=== PATIENT | male | born 1950 | race Caucasian/White ===

== ENCOUNTER 2016-07-11 10:52 | Day surgery (SDC) | payer BC ==
[2016-07-11] MEDS ORDERED: LACTATED RINGERS 1,000 ML IV ONE ×2 (11:29→13:53)
[2016-07-11] MEDS ORDERED: MIDAZOLAM 2 MG/2 ML VIAL IVP ONE (13:23)
[2016-07-11] MEDS ORDERED: fentaNYL 100 MCG/2 ML VIAL IVP ONE (13:23)
[2016-07-11] MEDS ORDERED: DEXTROSE 50% ABBOJECT 25 GM/50 ML SYRINGE ONE (14:18)
== END 2016-07-11 10:53 | disposition home or self-care (01) ==
PROC: 0DJD8ZZ Inspection of Lower Intestinal Tract, Via Natural or Artificial Opening Endoscopic (ICD-10-PCS; principal; 2016-07-11 12:00)
DX: Z12.11 Encounter for screening for malignant neoplasm of colon (principal); Z80.0 Family history of malignant neoplasm of digestive organs; Z86.010 Personal history of colon polyps; K57.30 Diverticulosis of large intestine without perforation or abscess without bleeding; K64.8 Other hemorrhoids; E78.5 Hyperlipidemia, unspecified; E11.9 Type 2 diabetes mellitus without complications; Z79.84 Long term (current) use of oral hypoglycemic drugs; G47.30 Sleep apnea, unspecified; Z94.7 Corneal transplant status; Z82.49 Family history of ischemic heart disease and other diseases of the circulatory system
CPT/HCPCS: 45378; J7120

== ENCOUNTER 2016-08-25 13:13 | Outpatient (CLI) | payer BC | END 2016-08-25 13:14 | disposition home or self-care (01) | DX: G47.33 Obstructive sleep apnea (adult) (pediatric) (principal) ==

== ENCOUNTER 2016-09-05 11:30 | Outpatient (CLI) | payer BC | END 2016-09-05 23:59 | disposition home or self-care (01) | DX: I73.00 Raynaud's syndrome without gangrene (principal) ==

== ENCOUNTER 2016-10-20 11:04 | Outpatient (CLI) | payer BC ==
[2016-10-20 19:25] LABS: HEMOGLOBIN A1C 0.63 g/dL
== END 2016-10-20 11:05 | disposition home or self-care (01) ==
LOC: LAB.WCP 11:04
PROVIDERS: ATTEND Family Medicine
DX: E11.9 Type 2 diabetes mellitus without complications (principal)
CPT/HCPCS: 36415; 83036

== ENCOUNTER 2017-04-17 09:38 | Outpatient (CLI) | payer BC ==
[2017-04-17 13:23] LABS: BASOPHILS % (AUTO) 0.6 %; EOSINOPHILS # (AUTO) 0.1 10^3/uL (0.0-0.7); EOSINOPHILS % (AUTO) 2.9 %; HCT - HEMATOCRIT 38.7 % (42.0-52.0); HGB - HEMOGLOBIN 13.2 g/dL (14.0-18.0); LYMPHOCYTES # (AUTO) 1.4 10^3/uL (1.5-3.5); LYMPHOCYTES % (AUTO) 28.8 %; MEAN CORPUSCULAR HEMOGLOBIN 30.2 pg (27.0-31.0); MEAN CORPUSCULAR VOLUME 88.8 fL (80.0-94.0); MEAN PLATELET VOLUME 9.2 fL (7.4-11.4); MONOCYTES # (AUTO) 0.4 10^3/uL (0.0-1.0); MONOCYTES % (AUTO) 8.4 %; NEUTROPHILS # (AUTO) 2.8 10^3/uL (1.5-6.6); NEUTROPHILS % (AUTO) 59.3 %; NUCLEATED RED BLOOD CELLS AUTO 0.1 /100WBC; RED BLOOD COUNT 4.36 10^6/uL (4.70-6.10); RED CELL DISTRIBUTION WIDTH 12.9 % (12.0-15.0); UNCORRECTED WHITE BLOOD COUNT 4.7 x10^3/uL; WHITE BLOOD COUNT 4.7 x10^3/uL (4.8-10.8)
[2017-04-17 14:02] LABS: ALBUMIN/GLOBULIN RATIO 1.6 (1.0-2.2); BILIRUBIN,TOTAL 0.5 mg/dL (0.2-1.0); BUN - BLOOD UREA NITROGEN 15 mg/dL (6-20); CALCIUM 9.1 mg/dL (8.5-10.3); CARBON DIOXIDE - CO2 30 mmol/L (21-32); CHLORIDE 104 mmol/L (101-111); CHOL/HDL RATIO 3.1 (<5.0); CHOLESTEROL 122 mg/dL; CREATININE 0.9 mg/dL (0.6-1.2); GFR - MDRD 85 (>89); GLUCOSE 111 mg/dL (70-100); HDL CHOLESTEROL 39 mg/dL; LDL/HDL RATIO 1.6 (<3.6); POTASSIUM 4.1 mmol/L (3.5-5.0); SODIUM 137 mmol/L (135-145); TOTAL PROTEIN 6.8 g/dL (6.7-8.2); TRIGLYCERIDES 103 mg/dL; VLDL CHOLESTEROL 21 mg/dL
[2017-04-17 14:06] LABS: HEMOGLOBIN A1C 0.63 g/dL
== END 2017-04-17 09:39 | disposition home or self-care (01) ==
LOC: LAB.WCP 09:38
PROVIDERS: ATTEND Family Medicine
DX: I73.00 Raynaud's syndrome without gangrene (principal); E11.9 Type 2 diabetes mellitus without complications
CPT/HCPCS: 36415; 80053; 80061; 82043; 83036; 85025

== ENCOUNTER 2017-05-04 10:25 | Outpatient (CLI) | payer BC | END 2017-05-04 10:26 | disposition home or self-care (01) | LOC: LAB.WCP 10:25 | PROVIDERS: ATTEND Family Medicine | DX: Z12.5 Encounter for screening for malignant neoplasm of prostate (principal) | CPT/HCPCS: 36415; 84153 ==

== ENCOUNTER 2017-11-02 08:00 | Outpatient (CLI) | payer BC ==
[2017-11-02 12:51] LABS: ALBUMIN/GLOBULIN RATIO 1.4 (1.0-2.2); BILIRUBIN,TOTAL 0.6 mg/dL (0.2-1.0); CALCIUM 9.3 mg/dL (8.5-10.3); TOTAL PROTEIN 6.9 g/dL (6.7-8.2)
[2017-11-02 13:11] LABS: HB2 TOTAL 14.9 g/dL; HEMOGLOBIN A1C 0.64 g/dL; HEMOGLOBIN A1C % 6.1 % (4.6-6.2)
== END 2017-11-02 08:01 | disposition home or self-care (01) ==
LOC: LAB.WCP 08:00
PROVIDERS: ATTEND Family Medicine
DX: R03.0 Elevated blood-pressure reading, without diagnosis of hypertension (principal); E11.9 Type 2 diabetes mellitus without complications; D12.6 Benign neoplasm of colon, unspecified; E78.5 Hyperlipidemia, unspecified
CPT/HCPCS: 36415; 80053; 83036

== ENCOUNTER 2017-11-24 09:44 | Observation (INO) | payer MEDICARE, BC ==
--- NOTE | 2017-11-24 10:12 | ED Physician Documentation ---
PD HPI GI BLEED - Stated complaint Stated Complaint: RECTAL BLEED - Chief complaint Chief Complaint: Cardiac - History obtained from History obtained from: Patient, Family - History of Present Illness Timing - onset: How many days ago (3) Timing - duration: Days (3) Timing - details: Gradual onset, Still present Associated symptoms: BRBPR, Maroon stool Contributing factors: Recent antibiotics (course one month ago twice per day antibiotic for a toe infection). No: Sick contact, Bad food Improved by: Laying still Worsened by: Eating Similar symptoms before: Has not had sx before Recently seen: Clinic - Additional information Additional information: 67 year old male was in his usual state of health and about 3 days ago he developed bright red blood per rectum. He had a fair amount out on the initial output and this reduced through the day but he had repeated bleeding and required some time to clean himself up. He states the following day he had similar amount of blood out and he went into see his primary care doctor he was seen by Reji Pineda who was able to draw his blood yesterday and examined him. He did not have blood at that time. The patient does state that he has had blood out again this morning and that when he went to go do his exercise he found that he was lightheaded and dizzy. He called the primary care and asked him to come to the emergency department as his blood counts were low. Review of Systems Constitutional: denies: Fever Ears: denies: Ear pain Nose: denies: Congestion Throat: denies: Sore throat Cardiac: denies: Chest pain / pressure, Palpitations Respiratory: denies: Dyspnea, Cough GI: reports: Abdominal Pain, Bloody / black stool. denies: Nausea, Vomiting : denies: Dysuria, Frequency Skin: denies: Rash Musculoskeletal: denies: Neck pain, Back pain, Extremity pain Neurologic: reports: Generalized weakness, Near syncope. denies: Focal weakness , Numbness PD PAST MEDICAL HISTORY - Past Medical History Cardiovascular: Hypertension, High cholesterol Respiratory: Sleep apnea, CPAP use Endocrine/Autoimmune: Type 2 diabetes GI: None : None Psych: None Musculoskeletal: None Derm: None - Past Surgical History General: Colonoscopy - Present Medications Home Medications: Ambulatory Orders Medication Instructions Recorded Confirmed Simvastatin 40 mg PO QPM 08/24/15 11/24/17 Tamsulosin [Flomax] 0.4 mg PO 1730 08/24/15 11/24/17 metFORMIN [Glucophage] 500 mg PO BIDWM 08/24/15 11/24/17 Aspirin [Aspirin EC] 81 mg PO DAILY 11/24/17 11/24/17 Cholecalciferol (Vitamin D3) 2,000 units PO DAILY 11/24/17 11/24/17 [Vitamin D3] Losartan Potassium 25 mg PO DAILY 11/24/17 11/24/17 Ubidecarenone [Co Q-10] 10 mg PO DAILY 11/24/17 11/24/17 Vitamin B Complex 1 tab PO DAILY 11/24/17 11/24/17 - Allergies Allergies/Adverse Reactions: Allergies Allergy/AdvReac Type Severity Reaction Status Date / Time No Known Drug Allergies Allergy Verified 11/24/17 10:00 - Social History Smoking Status: Never smoker PD ED PE NORMAL - Vitals Vital signs reviewed: Yes (hypertensive) - General General: Alert and oriented X 3, No acute distress, Well developed/nourished - HEENT HEENT: Atraumatic, PERRL, EOMI - Neck Neck: Supple, no meningeal sign, No bony TTP - Cardiac Cardiac: RRR, No murmur - Respiratory Respiratory: No respiratory distress, Clear bilaterally - Abdomen Abdomen: Soft, Non tender - Rectal Rectal: Other (There is a lot of maroon stool over the buttocks and there are hemorrhoids that do not appears inflamed. ) - Back Back: No CVA TTP, No spinal TTP - Derm Derm: Normal color, Warm and dry, No rash - Extremities Extremities: No deformity, No edema - Neuro Neuro: Alert and oriented X 3, melter operator 2-12 intact, No motor deficit, No sensory deficit, Normal speech Eye Opening: Spontaneous Motor: Obeys Commands Verbal: Oriented GCS Score: 15 - Psych Psych: Normal mood, Normal affect Results - Vitals Vitals: Vital Signs - 24 hr 11/24/17 11/24/17 09:59 11:24 Temperature 36.5 C Heart Rate 78 80 Respiratory 16 14 Rate Blood Pressure 141/68 H 134/70 H O2 Saturation 100 99 Oxygen O2 Source Room air - EKG (time done) 1007 Rate: Rate (enter#) (73) Ischemia: Normal ST segments Other comments: Other comments (early transition) Compare to prior EKG: Old EKG unavailable Computer interpretation: Agree with computer - Labs Labs: Laboratory Tests 11/24/17 11/24/17 11/24/17 10:10 10:10 10:10 WBC 8.2 RBC 3.66 L Hgb 11.1 L Hct 33.2 L MCV 90.7 MCH 30.4 MCHC 33.5 RDW 13.1 Plt Count 217 MPV 8.8 APTT 25.0 Sodium Potassium Chloride Carbon Dioxide Anion Gap BUN Creatinine Estimated GFR (MDRD) Glucose Calcium Total Bilirubin AST ALT Alkaline Phosphatase Total Protein Albumin Globulin Albumin/Globulin Ratio Lipase Blood Type O POSITIVE Antibody Screen NEGATIVE 11/24/17 10:10 WBC RBC Hgb Hct MCV MCH MCHC RDW Plt Count MPV APTT Sodium 137 Potassium 3.9 Chloride 102 Carbon Dioxide 28 Anion Gap 7.0 BUN 23 H Creatinine 0.9 Estimated GFR (MDRD) 85 L Glucose 155 H Calcium 8.8 Total Bilirubin 0.8 AST 20 ALT 17 Alkaline Phosphatase 54 Total Protein 6.6 L Albumin 4.4 Globulin 2.2 Albumin/Globulin Ratio 2.0 Lipase 27 Blood Type Antibody Screen Procedures - IVC sono (time) 1050 Bedside IVC sono: IVC measures (cm) (1.46), Euvolemia PD MEDICAL DECISION MAKING - ED course Complexity details: reviewed old records, reviewed results, re-evaluated patient , considered differential, d/w patient, d/w family ED course: 67-year-old male with GI bleeding who is symptomatic and continues to bleed for the third day. - Sepsis Event Vital Signs: Vital Signs - 24 hr 11/24/17 11/24/17 09:59 11:24 Temperature 36.5 C Heart Rate 78 80 Respiratory 16 14 Rate Blood Pressure 141/68 H 134/70 H O2 Saturation 100 99 Oxygen O2 Source Room air Departure - Departure Disposition: ED Place in Observation Clinical Impression: GI bleeding Qualifiers: GI bleed type/associated pathology: melena Qualified Code(s): K92.1 - Melena Condition: Stable
[2017-11-24 10:34] LABS: HGB - HEMOGLOBIN 11.1 g/dL (14.0-18.0); MEAN CORPUSCULAR HEMOGLOBIN 30.4 pg (27.0-31.0); MEAN CORPUSCULAR HGB CONC 33.5 g/dL (32.0-36.0); MEAN CORPUSCULAR VOLUME 90.7 fL (80.0-94.0); MEAN PLATELET VOLUME 8.8 fL (7.4-11.4); RED BLOOD COUNT 3.66 10^6/uL (4.70-6.10); RED CELL DISTRIBUTION WIDTH 13.1 % (12.0-15.0); WHITE BLOOD COUNT 8.2 x10^3/uL (4.8-10.8)
[2017-11-24 10:55] LABS: ALBUMIN 4.4 g/dL (3.2-5.5); BILIRUBIN,TOTAL 0.8 mg/dL (0.2-1.0); CALCIUM 8.8 mg/dL (8.5-10.3); CREATININE 0.9 mg/dL (0.6-1.2); TOTAL PROTEIN 6.6 g/dL (6.7-8.2)
[2017-11-24] MEDS ORDERED: PANTOPRAZOLE 40 MG VIAL IVP STA (11:00)
[2017-11-24] MEDS ORDERED: SODIUM CHLORIDE FLUSH 0.9% 10 ML SYRINGE IVP PRN (13:19)
--- NOTE | 2017-11-24 15:35 | HISTORY & PHYSICAL EXAMINATION ---
Chief Complaint - Chief Complaint Chief Complaint: fall History of Present Illness - Admitted From Admitted From:: ED - History Obtained From Records Reviewed: yes History obtained from: chart review, patient Exam Limitations: none - History of Present Illness HPI Comment/Other: Jabari Koch is a 67-year old male with a past medical history of diabetes type 2, SAAD-wears home CPAP, nocturia, BPH, tinnitis, chronic cough, hypertension, hyperlipidemia, Raynaud's phenomenon, and adenomatous colonic polyp April 2016 found on a colonoscopy with Dr. Santo. He has been bleeding from his rectum for the past 3 days. He denies previous episodes. He saw his PCP and was not found to have any bleeding, but hemorrhoids were appreciated. This morning he had viola red blood per rectum at home that was increased in volume, and had dizziness, weakness and fatigue, mild low abdominal cramping, so presented to the ED. Once in the ED he is found to have a low H & H of 11.1 and 33.2, with no other significant abnormalities. He denies increased shortness of breath, nausea, vomiting, recent illness, bleeding from any where else, or an increased cough. There was no imaging. Once the patient arrived on the nursing floor, he continued to have have viola blood in a moderate amount. A call to Dr. Palacio, general surgery was made for a consult, who recommends bowel prep to be started this evening, and serial H/Hs. He will be admitted to observation for a planned colonoscopy in the AM with Dr. Palacio. History - Past Medical History Cardiovascular: reports: Hypertension, High cholesterol, Other (Raynaud's syndrome) Respiratory: reports: Sleep apnea, CPAP use Neuro: reports: None Endocrine/Autoimmune: reports: Type 2 diabetes GI: reports: GERD, Hemorrhoids, Diverticulitis PERSONNEL WORKER: reports: None : reports: Benign prostate hypertrophy, Nocturia HEENT: reports: Chronic sinusitis, Chronic hearing loss, Other Psych: reports: None Musculoskeletal: reports: None Derm: reports: Other (recent toe infection.) MRSA Hx?: No - Past Surgical History General: reports: Colonoscopy HEENT: reports: Other - Family & Social History Family History: Mother: , Cancer, Father: , CAD, Brother: Alive and Well, Parkinson's Disease Family History Comment/Other: Father with heart disease, mother with cancer- both . 2 Brother who are alive and well, one brother with newly diagnosed Parkinson's. Living arrangement: At home Living Situation: With spouse/s.o. Social History Notes: The patient is retired from the [employer]. He has been to his , Lizette for the past 25 years, has no children and 2 cats named Frank and Joanne. He lives independently and belongs to a work out club. He denies chronic alcohol use, and admits to very occasional social use. He denies illicit drug use, or tobacco use. He wishes to be a FULL code. - Substance History Use: Uses substance without health or social issues: NONE Abuse: Recurrent use of substance despite neg consequences: NONE Dependence: Experiences withdrawal or developed tolerances: NONE - POLST Patient has POLST: No POLST Status: Full Code Meds/Allgy - Home Medications Home Medications: Ambulatory Orders Medication Instructions Recorded Confirmed Simvastatin 40 mg PO QPM 08/24/15 11/24/17 Tamsulosin [Flomax] 0.4 mg PO 1730 08/24/15 11/24/17 metFORMIN [Glucophage] 500 mg PO BIDWM 08/24/15 11/24/17 Aspirin [Aspirin EC] 81 mg PO DAILY 11/24/17 11/24/17 Cholecalciferol (Vitamin D3) 2,000 units PO DAILY 11/24/17 11/24/17 [Vitamin D3] Losartan Potassium 25 mg PO DAILY 11/24/17 11/24/17 Ubidecarenone [Co Q-10] 10 mg PO DAILY 11/24/17 11/24/17 Vitamin B Complex 1 tab PO DAILY 11/24/17 11/24/17 - Allergies Allergies/Adverse Reactions: Allergies Allergy/AdvReac Type Severity Reaction Status Date / Time No Known Drug Allergies Allergy Verified 11/24/17 10:00 Exam - Vital Signs Reviewed Vital Signs: Yes Vital Signs: Vital Signs x48h Temp Pulse Resp BP Pulse Ox 11/24/17 15:00 36.8 C 92 19 123/67 97 11/24/17 13:42 36.8 C 82 16 138/74 H 100 - Physical Exam General Appearance: positive: No acute distress, Alert Eyes Bilateral: positive: Normal inspection, PERRL ENT: positive: ENT inspection nml, Pharynx nml, No signs of dehydration Neck: positive: Nml inspection, Thyroid nml, No JVD Respiratory: positive: Chest non-tender, No respiratory distress, Breath sounds nml Cardiovascular: positive: Regular rate & rhythm, No gallop Peripheral Pulses: positive: 2+ Abdomen: positive: Guarding, Abnml bowel sounds, Other (rounded, soft) Back: positive: Nml inspection Skin: positive: No rash, Warm, Dry Extremities: positive: Non-tender, Full ROM, Pedal edema (varicose veins BLE, dependent edema-chronic) Neurologic/Psychiatric: positive: Oriented x3, CN's nml (2-12), Motor nml, Sensation nml, Depressed mood/affect, Other (studdery speech) Reflexes: Bicep (R): 3+, Bicep (L): 3+ Conclusion/Plan - Problem List (1) Diabetes mellitus type 2 in nonobese Conclusion/Plan: The patient is considered to be in good control with a HgA1C of just 6.2%. He is prescribed Metformin 500 mg PO BID at home and admits to attempts at daily exercise. Plan: Give low dose Lantus SQ while here and hold Metformin. (2) GI bleeding Conclusion/Plan: The patient admits to a 3 day history of this, saw his PCP in the clinic who could not note any bleeding and today had gross melena at home prior to admission. He became dizzy, weak and felt as if he may pass out. Once arriving on the nursing floor he continued to have bleeding. A consult for general surgery was made. Dr. Palacio recommends bowel prep with a planned colonoscopy in the AM. Plan: Monitor for bleeding, symptoms, and serial H/Hs. Plan for colonoscopy in the AM, Dr. Palacio as the provider. Qualifiers: GI bleed type/associated pathology: melena Qualified Code(s): K92.1 - Melena (3) Bleeding hemorrhoids Conclusion/Plan: The patient saw GI general surgery as an out patient for his rectal bleeding. In a chart review, Luis Armando Pineda MD saw the patient and noted, "Patient noticed blood on the toilet paper and in the bowl. He goes on to explain that last week he was having a flareup of his hemorrhoids and after using Preparation H they seemed to decrease in size. At first he thought he was having a recurrence when he saw the blood 2 days ago. However, when he applied the Preparation H this time he did not feel any treating hemorrhoids". Plan: Proceed with colonoscopy and follow Dr. Palacio's recommendations. (4) SAAD on CPAP Conclusion/Plan: The patient was diagnosed with severe SAAD in 2012 in [place], [place]. He recieves his CPAP unit from [facility] and uses a Wisp nasal mask. As per records review from his last sleep medicine appointment in August of 2017; He is thought to be 97.8% compliant with his device and should return for a check up in one year. Plan: to bring in home unit, and monitor for respiratory distress. (5) Anemia Conclusion/Plan: The patient is noted to have a reduced H/H at 11.1/33.2 and this is likely a consequence of his acute blood loss that started about 3 days prior to admission. Plan: Continue to monitor for extensive GI blood loss and do serial H/H as per surgery recommendations. Qualifiers: Other causes of anemia: acute posthemorrhagic - Lab Results Lab results reviewed: Yes Lul Bones: 11/25/17 06:54 11/24/17 10:10 - Diagnostic Imaging Results Diagnostic Imaging Results: positive: Prelim report reviewed, Final report reviewed - EKG Results EKG Interpreted Independently: Yes Core Measures - Anticipated LOS I expect patient to be DC'd or transferred within 96 hours.: Yes - DVT/VTE - Prophylaxis VTE/DVT Device ordered at admit?: Yes VTE/DVT Prophylaxis med ordered at admit?: No Not Ordered - Medical Reason: Contraindicated - Stroke - Rehab Assessment Rehab services assessment to be ordered?: No Not Ordered - Medical Reason: Contraindicated - AMI - Statin at Admit Aspirin Prescribed on Admit: No Not Ordered - Medical Reason: Contraindicated
[2017-11-24] MEDS: SODIUM/POTASSIUM/MAG SULFATES 354 ML PREP KIT PO SCH (17:53)
[2017-11-24] MEDS: SODIUM CHLORIDE FLUSH 0.9% 10 ML SYRINGE IVP SCH ×2 (18:00→23:35)
[2017-11-24 19:28] LABS: HGB - HEMOGLOBIN 11.2 g/dL (14.0-18.0)
[2017-11-24] MEDS: PANTOPRAZOLE 40 MG VIAL IVP SCH (20:21)
[2017-11-24] MEDS: SODIUM CHLORIDE 0.9% 1,000 ML IV SCH (20:24)
[2017-11-25 02:17] LABS: HGB - HEMOGLOBIN 9.4 g/dL (14.0-18.0)
[2017-11-25] MEDS: SODIUM/POTASSIUM/MAG SULFATES 354 ML PREP KIT PO SCH (05:30)
[2017-11-25 07:31] LABS: BASOPHILS # (AUTO) 0.1 10^3/uL (0.0-0.1); BASOPHILS % (AUTO) 0.9 %; EOSINOPHILS # (AUTO) 0.2 10^3/uL (0.0-0.7); EOSINOPHILS % (AUTO) 3.3 %; HGB - HEMOGLOBIN 10.4 g/dL (14.0-18.0); LYMPHOCYTES # (AUTO) 1.7 10^3/uL (1.5-3.5); LYMPHOCYTES % (AUTO) 26.8 %; MEAN CORPUSCULAR HEMOGLOBIN 30.3 pg (27.0-31.0); MEAN CORPUSCULAR HGB CONC 33.8 g/dL (32.0-36.0); MEAN CORPUSCULAR VOLUME 89.6 fL (80.0-94.0); MEAN PLATELET VOLUME 8.6 fL (7.4-11.4); MONOCYTES # (AUTO) 0.5 10^3/uL (0.0-1.0); MONOCYTES % (AUTO) 8.4 %; NEUTROPHILS # (AUTO) 3.8 10^3/uL (1.5-6.6); NEUTROPHILS % (AUTO) 60.6 %; PLT - PLATELET COUNT 215 10^3/uL (130-450); RED BLOOD COUNT 3.44 10^6/uL (4.70-6.10); RED CELL DISTRIBUTION WIDTH 13.4 % (12.0-15.0); WHITE BLOOD COUNT 6.3 x10^3/uL (4.8-10.8)
[2017-11-25 08:20] LABS: HB2 TOTAL 10.9 g/dL; HEMOGLOBIN A1C 0.48 g/dL; HEMOGLOBIN A1C % 6.2 % (4.6-6.2)
[2017-11-25] MEDS: SODIUM CHLORIDE 0.9% 1,000 ML IV SCH (08:32)
--- NOTE | 2017-11-25 08:55 | CONSULTATION NOTE ---
Referring Provider Name of Referring Provider:: Kary Mack Consult Date: 11/25/17 Chief Complaint - Chief Complaint Chief Complaint: GI Bleed History of Present Illness - History of Present Illness HPI Comment/Other: This is a 67-year-old gentleman who presented to the emergency department with a 3 day history of maroon colored stools.He states that he was in his usual state of health and suddenly began developing these maroon colored stools. He did have one episode of lower abdominal pain which subsided before coming to the emergency department. He had a similar episode approximately 1 year ago and underwent a colonoscopy at that time which was negative for any acute findings. He regularly undergoes clinic scopic evaluations every 5 years due to family history and usually has polyps which are removed. He has never had an upper endoscopy. He denies any associated upper GI symptoms such as burning epigastric pain, GERD, or any history of peptic ulcer disease.Since his admission to the hospital he has remained hemodynamically stable.He has continued to have maroon stools with his bowel prep. He has continued to have maroon colored stools that he has completed his bowel prep.His H&H on admission was and today is 03/06.He takes a baby aspirin daily and no other anticoagulation.He denies any recent heavy usage of NSAIDs. History - Past Medical History Cardiovascular: reports: Hypertension, High cholesterol Respiratory: reports: Sleep apnea, CPAP use Neuro: reports: None Endocrine/Autoimmune: reports: Type 2 diabetes GI: reports: GERD, Hemorrhoids, Diverticulitis COURT SPECIALIST: reports: None : reports: Benign prostate hypertrophy, Nocturia HEENT: reports: Chronic sinusitis, Chronic hearing loss, Other Psych: reports: None Musculoskeletal: reports: None Derm: reports: Other (recent toe infection.) MRSA Hx?: No - Past Surgical History General: reports: Colonoscopy HEENT: reports: Other - Family & Social History Family History: Mother: , Cancer, Father: , CAD, Brother: Alive and Well, Parkinson's Disease Family History Comment/Other: Father with heart disease, mother with cancer- both . 2 Brother who are alive and well, one brother with newly diagnosed Parkinson's. Living arrangement: At home Living Situation: With spouse/s.o. Social History Notes: The patient is retired from the [employer]. He has been to his , Lizette for the past 25 years, has no children and 2 cats named Frank and Joanne. He lives independently and belongs to a work out club. He denies chronic alcohol use, and admits to very occasional social use. He denies illicit drug use, or tobacco use. He wishes to be a FULL code. - Substance History Use: Uses substance without health or social issues: NONE Abuse: Recurrent use of substance despite neg consequences: NONE Dependence: Experiences withdrawal or developed tolerances: NONE - POLST Patient has POLST: No POLST Status: Full Code Meds/Allgy - Home Medications Home Medications: Ambulatory Orders Medication Instructions Recorded Confirmed Simvastatin 40 mg PO QPM 08/24/15 11/24/17 Tamsulosin [Flomax] 0.4 mg PO 1730 08/24/15 11/24/17 metFORMIN [Glucophage] 500 mg PO BIDWM 08/24/15 11/24/17 Aspirin [Aspirin EC] 81 mg PO DAILY 11/24/17 11/24/17 Cholecalciferol (Vitamin D3) 2,000 units PO DAILY 11/24/17 11/24/17 [Vitamin D3] Losartan Potassium 25 mg PO DAILY 11/24/17 11/24/17 Ubidecarenone [Co Q-10] 10 mg PO DAILY 11/24/17 11/24/17 Vitamin B Complex 1 tab PO DAILY 11/24/17 11/24/17 - Allergies Allergies/Adverse Reactions: Allergies Allergy/AdvReac Type Severity Reaction Status Date / Time No Known Drug Allergies Allergy Verified 11/24/17 10:00 Review of Systems - Constitutional Constitutional: reports: Fatigue - Cardiovascular Cariovascular: denies: Chest pain - Respiratory Respiratory: denies: Cough - Gastrointestinal Gastrointestinal: reports: Rectal bleeding. denies: Abdominal pain, Abdominal distention Exam - Vital Signs Vital Signs: Vital Signs x48h Temp Pulse Resp BP Pulse Ox 11/25/17 07:42 36.3 C L 77 16 148/84 H 99 11/25/17 05:33 36.6 C 80 16 135/75 H 97 - Physical Exam General Appearance: positive: No acute distress Respiratory: positive: No respiratory distress, Breath sounds nml Cardiovascular: positive: Regular rate & rhythm Abdomen: positive: Non-tender, No distention Extremities: positive: Nml appearance Neurologic/Psychiatric: positive: Oriented x3 Conclusion/Plan - Diagnosis Diagnosis: 67-year-old gentleman with GI bleed - Plan Plan: The patient will undergo both EGD and colonoscopy today. The procedures were explained to the patient in detail including potential risks involved including but not limited to bleeding and perforation. He understands and agrees to proceed. - Lab Results Lab results reviewed: Yes Lul Bones: 11/25/17 06:54 11/24/17 10:10
[2017-11-25] MEDS: PANTOPRAZOLE 40 MG VIAL IVP SCH (09:00)
[2017-11-25] MEDS ORDERED: POLYETHYLENE GLYCOL 3350 17 GM PACKET PO SCH (09:00)
[2017-11-25] MEDS ORDERED: LIDO GARGLE 30 ML BOTTLE PO ONE (09:00)
[2017-11-25] MEDS ORDERED: LIDO GARGLE 30 ML BOTTLE ONE (09:11)
[2017-11-25] MEDS: SODIUM CHLORIDE FLUSH 0.9% 10 ML SYRINGE IVP SCH (09:24)
[2017-11-25] MEDS ORDERED: MIDAZOLAM 2 MG/2 ML VIAL IVP ONE (10:00)
[2017-11-25] MEDS ORDERED: fentaNYL 100 MCG/2 ML VIAL IVP ONE (10:00)
[2017-11-25] MEDS ORDERED: PROPOFOL 200 MG/20 ML VIAL IVP ONE (10:00)
--- NOTE | 2017-11-25 10:57 | DISCHARGE SUMMARY ---
Discharge Summary Admit Date: 11/24/17 Discharge Date: 11/25/17 Discharging Provider: AMINA Rendon Primary Care Provider: Darren Salazar MD Code Status: Attempt Resuscitation Condition at Discharge: Good Discharge Disposition: 01 Home, Self Care - DIAGNOSES Admission Diagnoses: Gastrointestinal hemorrhage, unspecified (K92.2) Type 2 diabetes mellitus without complications (E11.9) Unspecified hemorrhoids (K64.9) Obstructive sleep apnea (adult) (G47.33) Discharge Diagnoses with Status of Each Condition: Gastric ulcer (K25.9) GI bleed (K92.2) Diabetes mellitus type 2, controlled (E11.9) Bleeding hemorrhoid (K64.9) SAAD on CPAP (G47.33) - HPI History of Present Illness: Jabari Koch is a 67-year old male with a past medical history of diabetes type 2, SAAD-wears home CPAP, nocturia, BPH, tinnitis, chronic cough, hypertension, hyperlipidemia, Raynaud's phenomenon, and adenomatous colonic polyp April 2016 found on a colonoscopy with Dr. Santo. He has been bleeding from his rectum for the past 3 days. He denies previous episodes. He saw his PCP and was not found to have any bleeding, but hemorrhoids were appreciated. This morning he had viola red blood per rectum at home that was increased in volume, and had dizziness, weakness and fatigue, mild low abdominal cramping, so presented to the ED. Once in the ED he is found to have a low H & H of 11.1 and 33.2, with no other significant abnormalities. He denies increased shortness of breath, nausea, vomiting, recent illness, bleeding from any where else, or an increased cough. There was no imaging. Once the patient arrived on the nursing floor, he continued to have have viola blood in a moderate amount. A call to Dr. Palacio, general surgery was made for a consult, who recommends bowel prep to be started this evening, and serial H/Hs. He will be admitted to observation for a planned colonoscopy in the AM with Dr. Palacio. - CONSULTS | PROCEDURES Consultations: GI surgery, Dr. Palacio - HOSPITAL COURSE Hospital Course: (1) Diabetes mellitus type 2 in nonobese The patient is considered to be in good control with a HgA1C of just 6.2%. He is prescribed Metformin 500 mg PO BID at home and admits to attempts at daily exercise. The patient was given low dose Lantus SQ while here and his Metformin was held and resumed upon discharge. (2) GI bleeding The patient admits to a 3 day history of this, saw his PCP in the clinic who could not note any bleeding and today had gross melena at home prior to admission. He became dizzy, weak and felt as if he may pass out. Once arriving on the nursing floor he continued to have bleeding. A consult for general surgery was made. Dr. Palacio recommends bowel prep with a planned colonoscopy in the AM. The patient was monitored for bleeding, and had serial H /Hs, which were stable. The patient underwent a colonoscopy/EGD with Dr. Palacio, who identified the most likely source of bleeding of an ulcer. He was given a PPI and carafate upon discharge. (3) Bleeding hemorrhoids The patient saw GI general surgery as an out patient for his rectal bleeding. In a chart review, Luis Armando Pineda MD saw the patient and noted, "Patient noticed blood on the toilet paper and in the bowl. He goes on to explain that last week he was having a flareup of his hemorrhoids and after using Preparation H they seemed to decrease in size. At first he thought he was having a recurrence when he saw the blood 2 days ago. However, when he applied the Preparation H this time he did not feel any treating hemorrhoids". This is considered stable upon discharge. (4) SAAD on CPAP The patient was diagnosed with severe SAAD in 2012 in [place], [place]. He recieves his CPAP unit from [facility] and uses a Wisp nasal mask. As per records review from his last sleep medicine appointment in August of 2017; He is thought to be 97.8% compliant with his device and should return for a check up in one year. brought in the patient's home unit and he was noted to be as compliant as possible, despite undergoing his bowel prep through the night. He was monitored for respiratory distress immediately post-procedure and as sedation wore off, he resumed a regular diet and had no respiratory distress or difficulties. (5) Anemia The patient is noted to have a reduced H/H at 11.1/33.2 and this is likely a consequence of his acute blood loss that started about 3 days prior to admission. The patient was continuously monitored for extensive GI blood loss and underwent serial H/Hs as per surgery recommendations and these were normal. Disposition: The patient was in stable condition and was discharged home with no oxygen needed, and was ambulatory. He was transported via private car via . - ALLERGIES Allergies/Adverse Reactions: Allergies Allergy/AdvReac Type Severity Reaction Status Date / Time No Known Drug Allergies Allergy Verified 11/24/17 10:00 - MEDICATIONS Home Medications: Ambulatory Orders Medication Instructions Recorded Confirmed Simvastatin 40 mg PO QPM 08/24/15 11/24/17 Tamsulosin [Flomax] 0.4 mg PO 1730 08/24/15 11/24/17 metFORMIN [Glucophage] 500 mg PO BIDWM 08/24/15 11/24/17 Aspirin [Aspirin EC] 81 mg PO DAILY 11/24/17 11/24/17 Cholecalciferol (Vitamin D3) 2,000 units PO DAILY 11/24/17 11/24/17 [Vitamin D3] Losartan Potassium 25 mg PO DAILY 11/24/17 11/24/17 Ubidecarenone [Co Q-10] 10 mg PO DAILY 11/24/17 11/24/17 Vitamin B Complex 1 tab PO DAILY 11/24/17 11/24/17 Pantoprazole Sodium 20 mg PO BID #60 tablet. 11/25/17 Sucralfate [Carafate] 1 gm PO QID #120 ml 11/25/17 - PHYSICAL EXAM AT DISCHARGE General Appearance: positive: No acute distress, Alert Eyes Bilateral: positive: Normal inspection, PERRL ENT: positive: ENT inspection nml, Pharynx nml, No signs of dehydration Neck: positive: Nml inspection, Thyroid nml, No JVD Respiratory: positive: Chest non-tender, No respiratory distress, Breath sounds nml Cardiovascular: positive: Regular rate & rhythm, No gallop, Systolic murmur Peripheral Pulses: positive: 2+ Abdomen: positive: Non-tender, Nml bowel sounds, Tenderness, Guarding Back: positive: Nml inspection Skin: positive: No rash, Warm, Dry, Other (mildly pale) Extremities: positive: Non-tender, Full ROM, Pedal edema (chronic, dependent), Joint swelling Neurologic/Psychiatric: positive: Oriented x3, CN's nml (2-12), Motor nml, Sensation nml, Depressed mood/affect Reflexes: Bicep (R): 2+, Bicep (L): 2+ - LABS Result Diagrams: 11/25/17 06:54 11/24/17 10:10 - FOLLOW UP Follow Up: Disposition: 01 Home, Self Care Condition: Good Prescriptions: Pantoprazole Sodium 20 mg PO BID #60 tablet.dr Barrralfate [Carafate] 1 gm PO QID #120 ml Diet: Diabetic Activity Restrictions: No Restrictions Shower Restrictions: No Driving Restrictions: No Weight Bearing: Full Weight Instruction Topics: Pantoprazole tablets, Sucralfate tablets Additional Instructions or Follow Up instructions: You were admitted to observation for GI bleeding. You had both an EGD and a colonoscopy. You were found to have a gastric ulcer, so Dr. Palacio, General surgery recommends a proton pump inhibitor twice daily and Carafate 4 times per day for the next 8 weeks. These were both sent to your pharmacy. Please see your primary provider within one week. - TIME SPENT Time Spent in Discharge (Minutes): 45
[2017-11-25 11:12] VITALS: BP 137/70
[2017-11-25] MEDS ORDERED: TAMSULOSIN 0.4 MG CAPSULE PO SCH (17:30)
[2017-11-26] MEDS ORDERED: LOSARTAN 50 MG TABLET PO SCH (09:00)
[2017-11-26] MEDS ORDERED: ASPIRIN EC 81 MG TABLET PO SCH (09:00)
== END 2017-11-25 13:20 | disposition home or self-care (01) ==
LOC: ED 09:44 → OBS 13:19
PROVIDERS: ADMIT Nurse Practitioner; ATTEND Nurse Practitioner
PROC: 0DJD8ZZ Inspection of Lower Intestinal Tract, Via Natural or Artificial Opening Endoscopic (ICD-10-PCS; 2017-11-25)
PROC: 0DB98ZX Excision of Duodenum, Via Natural or Artificial Opening Endoscopic, Diagnostic (ICD-10-PCS; principal; 2017-11-25 09:00)
PROC: 0DB68ZX Excision of Stomach, Via Natural or Artificial Opening Endoscopic, Diagnostic (ICD-10-PCS; 2017-11-25 09:00)
DX: K25.4 Chronic or unspecified gastric ulcer with hemorrhage (principal); D62 Acute posthemorrhagic anemia; K29.80 Duodenitis without bleeding; K64.9 Unspecified hemorrhoids; I10 Essential (primary) hypertension; G47.33 Obstructive sleep apnea (adult) (pediatric); E11.9 Type 2 diabetes mellitus without complications; N40.1 Benign prostatic hyperplasia with lower urinary tract symptoms; R35.1 Nocturia; E78.5 Hyperlipidemia, unspecified; I73.00 Raynaud's syndrome without gangrene; Z79.84 Long term (current) use of oral hypoglycemic drugs; Z79.82 Long term (current) use of aspirin; Z79.899 Other long term (current) drug therapy; Z86.010 Personal history of colon polyps; Z87.19 Personal history of other diseases of the digestive system
CPT/HCPCS: 36415; 43239; 45378; 80053; 83036; 83690; 85014; 85018; 85025; 85027; 85610; 85730; 86850; 86900; 86901; 87493; 93005; 96361; 96374; 96376; 99283; 99284; A9270; G0378

== ENCOUNTER 2018-04-25 09:41 | Outpatient (CLI) | payer MEDICARE, BC ==
[2018-04-25 12:58] LABS: BASOPHILS % (AUTO) 0.7 %; EOSINOPHILS # (AUTO) 0.2 10^3/uL (0.0-0.7); EOSINOPHILS % (AUTO) 3.5 %; HGB - HEMOGLOBIN 13.2 g/dL (14.0-18.0); LYMPHOCYTES # (AUTO) 1.4 10^3/uL (1.5-3.5); LYMPHOCYTES % (AUTO) 24.4 %; MEAN CORPUSCULAR HEMOGLOBIN 29.5 pg (27.0-31.0); MEAN CORPUSCULAR HGB CONC 34.1 g/dL (32.0-36.0); MEAN CORPUSCULAR VOLUME 86.7 fL (80.0-94.0); MEAN PLATELET VOLUME 9.2 fL (7.4-11.4); MONOCYTES # (AUTO) 0.6 10^3/uL (0.0-1.0); MONOCYTES % (AUTO) 9.7 %; NEUTROPHILS # (AUTO) 3.6 10^3/uL (1.5-6.6); NEUTROPHILS % (AUTO) 61.7 %; PLT - PLATELET COUNT 215 10^3/uL (130-450); RED BLOOD COUNT 4.48 10^6/uL (4.70-6.10); RED CELL DISTRIBUTION WIDTH 14.6 % (12.0-15.0); WHITE BLOOD COUNT 5.8 x10^3/uL (4.8-10.8)
[2018-04-25 13:08] LABS: ALBUMIN 4.4 g/dL (3.2-5.5); ALBUMIN/GLOBULIN RATIO 1.6 (1.0-2.2); ALKALINE PHOSPHATASE 62 IU/L (42-121); ALT ALANINE AMINOTRANSFERASE 20 IU/L (10-60); AST ASPARTATE AMINOTRANSFERASE 20 IU/L (10-42); BILIRUBIN,TOTAL 0.6 mg/dL (0.2-1.0); BUN - BLOOD UREA NITROGEN 15 mg/dL (6-20); CHOL/HDL RATIO 2.4 (<5.0); CHOLESTEROL 130 mg/dL; GFR - MDRD 75 (>89); HDL CHOLESTEROL 54 mg/dL; LDL CHOLESTEROL,CALCULATED 59 mg/dL; LDL/HDL RATIO 1.1 (<3.6); TOTAL PROTEIN 7.1 g/dL (6.7-8.2); VLDL CHOLESTEROL 17 mg/dL
[2018-04-25 13:48] LABS: HB2 TOTAL 13.4 g/dL; HEMOGLOBIN A1C 0.67 g/dL; HEMOGLOBIN A1C % 6.7 % (4.6-6.2)
[2018-04-25 14:41] LABS: CALCIUM 9.5 mg/dL (8.5-10.3); CARBON DIOXIDE - CO2 30 mmol/L (21-32); CHLORIDE 103 mmol/L (101-111); GLUCOSE 113 mg/dL (70-100); SODIUM 139 mmol/L (135-145)
== END 2018-04-25 23:59 | disposition home or self-care (01) ==
LOC: LAB.WCP 09:41
PROVIDERS: ATTEND Family Medicine
DX: N40.0 Benign prostatic hyperplasia without lower urinary tract symptoms (principal); E78.5 Hyperlipidemia, unspecified; E11.9 Type 2 diabetes mellitus without complications; Z12.5 Encounter for screening for malignant neoplasm of prostate
CPT/HCPCS: 36415; 80053; 80061; 82043; 83036; 84443; 85025; G0103; 83721; 84153

== ENCOUNTER 2018-11-06 12:45 | Outpatient (CLI) | payer MEDICARE, BC ==
[2018-11-06 12:24] LABS: ALBUMIN 4.3 g/dL (3.2-5.5); ALBUMIN/GLOBULIN RATIO 1.5 (1.0-2.2); BILIRUBIN,TOTAL 0.9 mg/dL (0.2-1.0); CALCIUM 9.4 mg/dL (8.5-10.3); TOTAL PROTEIN 7.2 g/dL (6.7-8.2)
[2018-11-06 12:31] LABS: HB2 TOTAL 14.2 g/dL; HEMOGLOBIN A1C 0.81 g/dL; HEMOGLOBIN A1C % 7.4 % (4.6-6.2)
== END 2018-11-06 23:59 | disposition home or self-care (01) ==
LOC: LAB.WCP 12:45
PROVIDERS: ATTEND Family Medicine
DX: K59.00 Constipation, unspecified (principal); E11.9 Type 2 diabetes mellitus without complications; K27.9 Peptic ulcer, site unspecified, unspecified as acute or chronic, without hemorrhage or perforation; D12.6 Benign neoplasm of colon, unspecified; E78.5 Hyperlipidemia, unspecified
CPT/HCPCS: 36415; 80053; 83036

== ENCOUNTER 2019-02-13 08:00 | Outpatient (CLI) | payer BC, MEDICARE ==
[2019-02-13 12:13] LABS: ALBUMIN 4.4 g/dL (3.2-5.5); ALBUMIN/GLOBULIN RATIO 1.6 (1.0-2.2); BILIRUBIN,TOTAL 0.5 mg/dL (0.2-1.0); CALCIUM 9.6 mg/dL (8.5-10.3); CREATININE 1.1 mg/dL (0.6-1.2); TOTAL PROTEIN 7.1 g/dL (6.7-8.2)
[2019-02-13 12:34] LABS: HB2 TOTAL 14.8 g/dL; HEMOGLOBIN A1C 0.6 g/dL; HEMOGLOBIN A1C % 5.9 % (4.6-6.2)
== END 2019-02-13 23:59 | disposition home or self-care (01) ==
LOC: LAB.WCP 08:00
PROVIDERS: ATTEND Family Medicine
DX: N40.0 Benign prostatic hyperplasia without lower urinary tract symptoms (principal); E11.9 Type 2 diabetes mellitus without complications
CPT/HCPCS: 36415; 80053; 83036

== ENCOUNTER 2019-05-31 09:03 | Outpatient (CLI) | payer BC ==
[2019-05-31 12:23] LABS: CALCIUM 9.2 mg/dL (8.5-10.3); CREATININE 1.2 mg/dL (0.6-1.2)
[2019-05-31 12:35] LABS: HB2 TOTAL 14.3 g/dL; HEMOGLOBIN A1C 0.6 g/dL
== END 2019-05-31 23:59 | disposition home or self-care (01) ==
LOC: LAB.WCP 09:03
PROVIDERS: ATTEND Nurse Practitioner Family
DX: E11.9 Type 2 diabetes mellitus without complications (principal)
CPT/HCPCS: 36415; 80048; 83036

== ENCOUNTER 2019-11-28 09:01 | Outpatient (CLI) | payer BC ==
[2019-11-28 12:59] LABS: CALCIUM 8.8 mg/dL (8.5-10.3); CREATININE 1.2 mg/dL (0.6-1.2)
[2019-11-28 13:18] LABS: CREATININE,URINE 71.8 mg/dL; MICROALBUM/CREATININE RATIO,UR 9.7 ug/mg (<30.0); MICROALBUMIN,URINE 0.7 mg/dL (0-300.0)
== END 2019-11-28 23:59 | disposition home or self-care (01) ==
LOC: LAB.WCP 09:01
PROVIDERS: ATTEND Family Medicine
DX: I10 Essential (primary) hypertension (principal); E11.9 Type 2 diabetes mellitus without complications; E78.5 Hyperlipidemia, unspecified
CPT/HCPCS: 36415; 80048; 81599; 82043; 82570; 83036

== ENCOUNTER 2020-08-26 09:46 | Outpatient (CLI) | payer BC ==
[2020-08-26 12:01] LABS: BASOPHILS # (AUTO) 0.1 10^3/uL (0.0-0.1); BASOPHILS % (AUTO) 0.9 %; EOSINOPHILS # (AUTO) 0.3 10^3/uL (0.0-0.7); EOSINOPHILS % (AUTO) 4.5 %; HCT - HEMATOCRIT 43.8 % (42.0-52.0); HGB - HEMOGLOBIN 14.1 g/dL (14.0-18.0); LYMPHOCYTES # (AUTO) 1.4 10^3/uL (1.5-3.5); LYMPHOCYTES % (AUTO) 23.4 %; MEAN CORPUSCULAR HEMOGLOBIN 29.8 pg (27.0-31.0); MEAN CORPUSCULAR HGB CONC 32.2 g/dL (32.0-36.0); MEAN CORPUSCULAR VOLUME 92.6 fL (80.0-94.0); MEAN PLATELET VOLUME 10.8 fL (7.4-11.4); MONOCYTES # (AUTO) 0.6 10^3/uL (0.0-1.0); MONOCYTES % (AUTO) 9.7 %; NEUTROPHILS # (AUTO) 3.6 10^3/uL (1.5-6.6); NEUTROPHILS % (AUTO) 61.5 %; PLT - PLATELET COUNT 232 10^3/uL (130-450); RED BLOOD COUNT 4.73 10^6/uL (4.70-6.10); RED CELL DISTRIBUTION WIDTH 12.8 % (12.0-15.0); WHITE BLOOD COUNT 5.8 x10^3/uL (4.8-10.8)
[2020-08-26 12:20] LABS: ALBUMIN 4.5 g/dL (3.2-5.5); ALBUMIN/GLOBULIN RATIO 1.7 (1.0-2.2); ALKALINE PHOSPHATASE 69 IU/L (42-121); ALT ALANINE AMINOTRANSFERASE 28 IU/L (10-60); AST ASPARTATE AMINOTRANSFERASE 25 IU/L (10-42); BILIRUBIN,TOTAL 0.5 mg/dL (0.2-1.0); BUN - BLOOD UREA NITROGEN 16 mg/dL (6-20); CALCIUM 9.5 mg/dL (8.5-10.3); CARBON DIOXIDE - CO2 29 mmol/L (21-32); CHLORIDE 101 mmol/L (101-111); CHOLESTEROL 130 mg/dL; CREATININE 1.1 mg/dL (0.6-1.2); GFR - MDRD 67 (>89); GLUCOSE 93 mg/dL (70-100); HDL CHOLESTEROL 44 mg/dL; LDL CHOLESTEROL,CALCULATED 69 mg/dL; LDL/HDL RATIO 1.6 (<3.6); POTASSIUM 4.1 mmol/L (3.5-5.0); SODIUM 140 mmol/L (135-145); TOTAL PROTEIN 7.1 g/dL (6.7-8.2); TRIGLYCERIDES 83 mg/dL; VLDL CHOLESTEROL 17 mg/dL
[2020-08-26 12:28] LABS: THYROID STIMULATING HORMONE 1.81 uIU/mL (0.34-5.60)
== END 2020-08-26 23:59 | disposition home or self-care (01) ==
LOC: LAB.WCP 09:46
PROVIDERS: ATTEND Family Medicine
DX: I10 Essential (primary) hypertension (principal); E11.9 Type 2 diabetes mellitus without complications; E78.5 Hyperlipidemia, unspecified
CPT/HCPCS: 36415; 80053; 80061; 83721; 84443; 85025

== ENCOUNTER 2020-11-26 08:00 | Outpatient (CLI) | payer BC ==
[2020-11-26 11:54] LABS: MICROALBUMIN,URINE 0.3 mg/dL (0-300.0)
[2020-11-26 12:14] LABS: ESTIMATED AVERAGE GLUCOSE 128 mg/dL (70-100); HEMOGLOBIN A1c% 6.1 % (4.27-6.07)
== END 2020-11-26 23:59 | disposition home or self-care (01) ==
LOC: LAB.WCP 08:00
PROVIDERS: ATTEND Internal Medicine
DX: E11.9 Type 2 diabetes mellitus without complications (principal); Z12.5 Encounter for screening for malignant neoplasm of prostate
CPT/HCPCS: 36415; 82043; 82570; 83036; 84153

== ENCOUNTER 2021-05-15 09:33 | Outpatient (CLI) | payer BC ==
[2021-05-15 13:41] LABS: BASOPHILS # (AUTO) 0.1 10^3/uL (0.0-0.1); BASOPHILS % (AUTO) 0.7 %; EOSINOPHILS # (AUTO) 0.2 10^3/uL (0.0-0.7); EOSINOPHILS % (AUTO) 3.2 %; HGB - HEMOGLOBIN 14.3 g/dL (14.0-18.0); LYMPHOCYTES # (AUTO) 1.5 10^3/uL (1.5-3.5); LYMPHOCYTES % (AUTO) 22.2 %; MEAN CORPUSCULAR HEMOGLOBIN 30.1 pg (27.0-31.0); MEAN CORPUSCULAR HGB CONC 32.5 g/dL (32.0-36.0); MEAN CORPUSCULAR VOLUME 92.6 fL (80.0-94.0); MEAN PLATELET VOLUME 10.9 fL (7.4-11.4); MONOCYTES # (AUTO) 0.6 10^3/uL (0.0-1.0); NEUTROPHILS # (AUTO) 4.5 10^3/uL (1.5-6.6); NEUTROPHILS % (AUTO) 65.6 %; PLT - PLATELET COUNT 235 10^3/uL (130-450); RED BLOOD COUNT 4.75 10^6/uL (4.70-6.10); RED CELL DISTRIBUTION WIDTH 12.8 % (12.0-15.0); WHITE BLOOD COUNT 6.9 x10^3/uL (4.8-10.8)
[2021-05-15 14:00] LABS: ALBUMIN 4.8 g/dL (3.2-5.5); ALBUMIN/GLOBULIN RATIO 1.9 (1.0-2.2); ALKALINE PHOSPHATASE 63 IU/L (42-121); ALT ALANINE AMINOTRANSFERASE 24 IU/L (10-60); AST ASPARTATE AMINOTRANSFERASE 23 IU/L (10-42); BILIRUBIN,TOTAL 0.8 mg/dL (0.2-1.0); BUN - BLOOD UREA NITROGEN 16 mg/dL (6-20); CALCIUM 9.7 mg/dL (8.5-10.3); CARBON DIOXIDE - CO2 29 mmol/L (21-32); CHLORIDE 102 mmol/L (101-111); CHOL/HDL RATIO 2.8 (<5.0); CHOLESTEROL 125 mg/dL; CREATININE 1.1 mg/dL (0.6-1.2); GFR - MDRD 67 (>89); GLUCOSE 109 mg/dL (70-100); HDL CHOLESTEROL 44 mg/dL; LDL CHOLESTEROL,CALCULATED 61 mg/dL; LDL/HDL RATIO 1.4 (<3.6); POTASSIUM 4.3 mmol/L (3.5-5.0); SODIUM 139 mmol/L (135-145); TOTAL PROTEIN 7.3 g/dL (6.7-8.2); TRIGLYCERIDES 99 mg/dL; VLDL CHOLESTEROL 20 mg/dL
[2021-05-15 14:09] LABS: THYROID STIMULATING HORMONE 2.03 uIU/mL (0.34-5.60)
[2021-05-15 14:46] LABS: ESTIMATED AVERAGE GLUCOSE 131 mg/dL (70-100); HEMOGLOBIN A1c% 6.2 % (4.27-6.07)
== END 2021-05-15 09:34 | disposition home or self-care (01) ==
LOC: LAB.N 09:33
PROVIDERS: ATTEND Internal Medicine
DX: I10 Essential (primary) hypertension (principal); E11.9 Type 2 diabetes mellitus without complications
CPT/HCPCS: 36415; 80053; 80061; 83036; 83721; 84443; 85025

== ENCOUNTER 2021-07-14 06:22 | Day surgery (SDC) | payer BC ==
[2021-07-14] MEDS ORDERED: LACTATED RINGERS 1,000 ML IV ONE ×2 (06:48→08:25)
[2021-07-14] MEDS ORDERED: MIDAZOLAM 2 MG/2 ML VIAL ONE (07:04)
[2021-07-14] MEDS ORDERED: PROPOFOL 500 MG/50 ML 500 MG/50 ML VIAL ONE (07:04)
--- NOTE | 2021-07-14 07:05 | ANESTHESIA ---
Pre-Anesthesia VS, & Labs - Diagnosis family history of colon cancer - Procedure colonoscopy Vital Signs: Temp Pulse Resp BP Pulse Ox 36.6 C 76 20 132/71 H 100 07/14/21 06:34 07/14/21 06:34 07/14/21 06:34 07/14/21 06:34 07/14/21 06:34 Height: 6 ft 2 in Weight (kg): 104.7 kg Body Mass Index: 29.6 BMI Classification: Overweight - NPO >8 hours - Lab Results Current Lab Results: Laboratory Tests 07/14/21 06:40: POC Whole Bld Glucose 79 Home Medications and Allergies Home Medications: Ambulatory Orders hydroCHLOROthiazide [Hydrodiuril] 12.5 mg PO DAILY 07/13/21 Simvastatin 40 mg PO QPM 08/24/15 Tamsulosin [Flomax] 0.4 mg PO 1730 08/24/15 metFORMIN [Glucophage] 500 mg PO BIDWM 08/24/15 Aspirin [Aspirin EC] 81 mg PO DAILY 11/24/17 Cholecalciferol (Vitamin D3) [Vitamin D3] 2,000 units PO DAILY 11/24/17 Losartan Potassium 25 mg PO DAILY 11/24/17 Ubidecarenone [Co Q-10] 10 mg PO DAILY 11/24/17 Vitamin B Complex 1 tab PO DAILY 11/24/17 hydroCHLOROthiazide [Hydrodiuril] 12.5 mg PO DAILY 07/13/21 Allergies/Adverse Reactions: Allergies Allergy/AdvReac Type Severity Reaction Status Date / Time No Known Drug Allergies Allergy Verified 11/24/17 10:00 Anes History & Medical History - Anesthetic History Anesthesia Complications: reports: No previous complications - Medical History Cardiovascular: reports: Hypertension, High cholesterol Pulmonary: reports: Sleep apnea, CPAP use Gastrointestinal: reports: GERD, Hemorrhoids, Diverticulitis Urinary: reports: Benign prostate hypertrophy, Nocturia Neuro: reports: None Musculoskeletal: reports: None Endocrine/Autoimmune: reports: Type 2 diabetes Blood Disorders: reports: None Skin: reports: Other Smoking Status: Never smoker History of Cancer?: Yes (skin ca) - Surgical History General: reports: Colonoscopy Eyes Ears Nose Throat (EENT): reports: Other (corneal transplant) Exam Dental: WNL Mallampati classification: II Respiratory: Lungs clear Cardiovascular: Regular rate, Normal S1, Normal S2 Plan Anesthesia Type: Total IV Consent for Procedure(s) Verified and Reviewed: Yes Code Status: Attempt Resuscitation ASA classification: 2-Mild systemic disease Is this case an emergency?: No
[2021-07-14 08:48] VITALS: BP 132/71
--- NOTE | 2021-07-14 11:43 | ANESTHESIA POST OP EVALUATION ---
Anesthesia Post Eval - Post Anesthesia Eval Vitals: Last Vital Signs Temp 36.5 C 07/14/21 08:40 Pulse 69 07/14/21 08:40 Resp 14 07/14/21 08:40 BP 132/71 H 07/14/21 08:40 Pulse Ox 100 07/14/21 08:40 CV Function Including HR & BP: Stable Pain Control: Satisfactory Nausea & Vomiting: Negative Mental Status: Baseline Respiratory Status: Airway Patent Hydration Status: Satisfactory Anesthesia Complications: None
== END 2021-07-14 06:23 | disposition home or self-care (01) ==
LOC: SDS 06:22
PROVIDERS: ATTEND Surgery
PROC: 0DJD8ZZ Inspection of Lower Intestinal Tract, Via Natural or Artificial Opening Endoscopic (ICD-10-PCS; principal; 2021-07-14 07:30)
DX: Z12.11 Encounter for screening for malignant neoplasm of colon (principal); K57.30 Diverticulosis of large intestine without perforation or abscess without bleeding; K64.8 Other hemorrhoids; Z80.0 Family history of malignant neoplasm of digestive organs; Z86.010 Personal history of colon polyps; G47.30 Sleep apnea, unspecified; E11.9 Type 2 diabetes mellitus without complications; Z79.84 Long term (current) use of oral hypoglycemic drugs
CPT/HCPCS: 45378; J7120

== ENCOUNTER 2021-08-08 19:48 | Emergency (ER) | payer BC ==
[2021-08-08 19:55] VITALS: BP 150/80
[2021-08-08 20:16] LABS: BILIRUBIN,URINE NEGATIVE (NEGATIVE); CLARITY,URINE CLOUDY (CLEAR); GLUCOSE, URINE (UA) NEGATIVE (NEGATIVE); KETONES,URINE (UA) NEGATIVE (NEGATIVE); LEUKOCYTE ESTERASE, URINE TRACE (NEGATIVE); NITRITE,URINE NEGATIVE (NEGATIVE); OCCULT BLOOD,URINE LARGE (NEGATIVE); PROTEIN,URINE >=300 mg/dL (NEGATIVE); UROBILINOGEN,URINE 0.2 (NORMAL) E.U./dL (NORMAL)
[2021-08-08 20:26] LABS: BACTERIA,URINE Rare /HPF (None Seen); RBC,URINE TNTC /HPF (0-5); SQUAMOUS EPITHELIAL CELL,UR RARE Squamous (<= Few); WBC,URINE >25 /HPF (0-3)
[2021-08-08] MEDS ORDERED: cephALEXin 250 MG CAPSULE PO STA (20:28)
--- NOTE | 2021-08-08 20:49 | ED Physician Documentation ---
History of Present Illness - Stated complaint Stated Complaint: BLOOD IN URINE - Chief complaint Chief Complaint: UTI - History obtained from History obtained from: Patient - History of Present Illness Timing: How many days ago (2) Pain level max: 4 Pain level now: 3 - Additonal information Additional information: 70-year-old male presents to the emergency department with dysuria, urinary frequency over the past 2 days. States hematuria today. Had similar symptoms with prior UTI. No fever. No vomiting. No back pain. No abdominal pain. Worse with urination, nothing makes it better. Not on blood thinners. Review of Systems Constitutional: denies: Fever, Chills GI: denies: Vomiting, Diarrhea : reports: Dysuria, Frequency, Hesitancy, Hematuria Skin: denies: Rash Musculoskeletal: denies: Neck pain, Back pain Neurologic: denies: Headache PD PAST MEDICAL HISTORY - Past Medical History Cardiovascular: Hypertension, High cholesterol Respiratory: Sleep apnea, CPAP use Neuro: None Endocrine/Autoimmune: Type 2 diabetes GI: GERD, Hemorrhoids, Diverticulitis [employer]: None : Benign prostate hypertrophy, Nocturia HEENT: Chronic sinusitis, Chronic hearing loss, Other Psych: None Musculoskeletal: None Derm: Other - Past Surgical History General: Colonoscopy HEENT: Other (corneal transplant) - Present Medications Home Medications: Ambulatory Orders Medication Instructions Recorded Confirmed Simvastatin 40 mg PO QPM 08/24/15 07/13/21 Tamsulosin [Flomax] 0.4 mg PO 1730 08/24/15 07/13/21 metFORMIN [Glucophage] 500 mg PO BIDWM 08/24/15 07/13/21 Aspirin [Aspirin EC] 81 mg PO DAILY 11/24/17 07/13/21 Cholecalciferol (Vitamin D3) 2,000 units PO DAILY 11/24/17 07/13/21 [Vitamin D3] Losartan Potassium 25 mg PO DAILY 11/24/17 07/13/21 Ubidecarenone [Co Q-10] 10 mg PO DAILY 11/24/17 07/13/21 Vitamin B Complex 1 tab PO DAILY 11/24/17 07/13/21 hydroCHLOROthiazide [Hydrodiuril] 12.5 mg PO DAILY 07/13/21 07/13/21 cephALEXin [Keflex] 500 mg PO Q6H #40 cap 08/08/21 - Allergies Allergies/Adverse Reactions: Allergies Allergy/AdvReac Type Severity Reaction Status Date / Time No Known Drug Allergies Allergy Verified 08/08/21 19:55 - Social History Does the pt smoke?: No Smoking Status: Never smoker Does the pt drink ETOH?: No Does the pt have substance abuse?: No - Immunizations Immunizations are current?: Yes - POLST Patient has POLST: No POLST Status: Full Code PD ED PE NORMAL - Vitals Vital signs reviewed: Yes - General General: Alert and oriented X 3, No acute distress - HEENT HEENT: Moist mucous membranes - Neck Neck: Supple, no meningeal sign - Cardiac Cardiac: RRR - Respiratory Respiratory: No respiratory distress, Clear bilaterally - Abdomen Abdomen: Soft, Non tender, Non distended - Back Back: No CVA TTP - Derm Derm: Warm and dry - Neuro Neuro: Alert and oriented X 3 - Psych Psych: Normal mood, Normal affect Results - Vitals Vitals: Vital Signs - 24 hr 08/08/21 19:51 Temperature 36.2 C L Heart Rate 73 Respiratory 16 Rate Blood Pressure 150/80 H O2 Saturation 100 Oxygen O2 Source Room air - Labs Labs: Laboratory Tests 08/08/21 19:59 Urine Color YELLOW Urine Clarity CLOUDY Urine pH 6.0 Ur Specific [place] >=1.030 H Urine Protein >=300 H Urine Glucose (UA) NEGATIVE Urine Ketones NEGATIVE Urine Occult Blood LARGE H Urine Nitrite NEGATIVE Urine Bilirubin NEGATIVE Urine Urobilinogen 0.2 (NORMAL) Ur Leukocyte Esterase TRACE H Urine RBC TNTC H Urine WBC >25 H Ur Squamous Epith Cells RARE Squamous Urine Bacteria Rare Ur Microscopic Review INDICATED Urine Culture Comments INDICATED PD MEDICAL DECISION MAKING - ED course Complexity details: reviewed results, re-evaluated patient, considered differential, d/w patient ED course: 70-year-old male with what appears to be UTI causing hematuria. Will place on antibiotics. follow-up with his doctor for further care. Expect that the bleeding will improve, with may be referred to urology for cystoscopy. Patient counseled regarding signs and symptoms for which I believe and urgent re- evaluation would be necessary. Patient with good understanding of and agreement to plan and is comfortable going home at this time This document was made in part using voice recognition software. While efforts are made to proofread this document, sound alike and grammatical errors may occur. Departure - Departure Disposition: 01 Home, Self Care Clinical Impression: UTI (urinary tract infection) Qualifiers: Urinary tract infection type: acute cystitis Hematuria presence: with hematuria Qualified Code(s): N30.01 - Acute cystitis with hematuria Hematuria Qualifiers: Hematuria type: unspecified type Qualified Code(s): R31.9 - Hematuria, unspecified Condition: Good Instructions: ED UTI Cystitis Male Follow-Up: Alo Gilmore MD [Primary Care Provider] - Within 1 week Prescriptions: cephALEXin [Keflex] 500 mg PO Q6H #40 cap Comments: Take all antibiotics until gone. Please follow-up with your doctor for further evaluation and care. They may want to schedule you for a cystoscopy after the treatment of your infection to ensure there are no other issues with your bladder. Your prescriptions were sent to [facility]. Discharge Date/Time: 08/08/21 21:03
== END 2021-08-08 21:03 | disposition home or self-care (01) ==
LOC: ED 19:48
DX: N30.01 Acute cystitis with hematuria (principal)
CPT/HCPCS: 81001; 87086; 99282; 99283; A9270; 81003; 87077

== ENCOUNTER 2022-05-06 08:37 | Outpatient (CLI) | payer BC ==
[2022-05-06 12:12] LABS: BASOPHILS # (AUTO) 0.1 10^3/uL (0.0-0.1); BASOPHILS % (AUTO) 0.7 %; EOSINOPHILS # (AUTO) 0.3 10^3/uL (0.0-0.7); EOSINOPHILS % (AUTO) 4.6 %; HCT - HEMATOCRIT 42.5 % (42.0-52.0); HGB - HEMOGLOBIN 13.6 g/dL (14.0-18.0); LYMPHOCYTES # (AUTO) 1.5 10^3/uL (1.5-3.5); MEAN CORPUSCULAR HEMOGLOBIN 29.3 pg (27.0-31.0); MEAN CORPUSCULAR VOLUME 91.6 fL (80.0-94.0); MEAN PLATELET VOLUME 10.8 fL (7.4-11.4); MONOCYTES # (AUTO) 0.6 10^3/uL (0.0-1.0); MONOCYTES % (AUTO) 9.4 %; NEUTROPHILS # (AUTO) 4.2 10^3/uL (1.5-6.6); NEUTROPHILS % (AUTO) 63.2 %; PLT - PLATELET COUNT 242 10^3/uL (130-450); RED BLOOD COUNT 4.64 10^6/uL (4.70-6.10); WHITE BLOOD COUNT 6.7 x10^3/uL (4.8-10.8)
[2022-05-06 12:27] LABS: ESTIMATED AVERAGE GLUCOSE 137 mg/dL (70-100); HEMOGLOBIN A1c% 6.4 % (4.27-6.07)
[2022-05-06 12:46] LABS: ALBUMIN 4.4 g/dL (3.2-5.5); ALBUMIN/GLOBULIN RATIO 1.6 (1.0-2.2); ALKALINE PHOSPHATASE 61 IU/L (42-121); ALT ALANINE AMINOTRANSFERASE 26 IU/L (10-60); AST ASPARTATE AMINOTRANSFERASE 24 IU/L (10-42); BILIRUBIN,TOTAL 0.8 mg/dL (0.2-1.0); BUN - BLOOD UREA NITROGEN 18 mg/dL (6-20); CALCIUM 9.7 mg/dL (8.5-10.3); CARBON DIOXIDE - CO2 30 mmol/L (21-32); CHLORIDE 100 mmol/L (101-111); CHOLESTEROL 132 mg/dL; CREATININE 1.3 mg/dL (0.6-1.2); GFR - MDRD 55 (>89); GLUCOSE 124 mg/dL (70-100); SODIUM 137 mmol/L (135-145); TOTAL PROTEIN 7.1 g/dL (6.7-8.2); TRIGLYCERIDES 106 mg/dL; VLDL CHOLESTEROL 21 mg/dL
[2022-05-06 13:20] LABS: CREATININE,URINE 218.4 mg/dL; MICROALBUM/CREATININE RATIO,UR 4.6 ug/mg (<30.0)
[2022-05-06 14:22] LABS: CHOL/HDL RATIO 2.9 (<5.0); HDL CHOLESTEROL 45 mg/dL; LDL CHOLESTEROL,CALCULATED 66 mg/dL; LDL/HDL RATIO 1.5 (<3.6)
== END 2022-05-06 08:38 | disposition home or self-care (01) ==
LOC: LAB.N 08:37
PROVIDERS: ATTEND Internal Medicine
DX: I10 Essential (primary) hypertension (principal); E11.9 Type 2 diabetes mellitus without complications; E78.5 Hyperlipidemia, unspecified; N40.1 Benign prostatic hyperplasia with lower urinary tract symptoms
CPT/HCPCS: 36415; 80053; 80061; 82043; 82570; 83036; 83721; 84153; 85025

== ENCOUNTER 2022-08-24 09:30 | Day surgery (SDC) | payer BC ==
[2022-08-24] MEDS ORDERED: LACTATED RINGERS 1,000 ML IV ONE ×2 (09:39→12:05)
[2022-08-24] MEDS ORDERED: PROPOFOL 200 MG/20 ML VIAL IVP ONE (11:03)
[2022-08-24] MEDS ORDERED: PROPOFOL 500 MG/50 ML 500 MG/50 ML VIAL ONE (11:03)
--- NOTE | 2022-08-24 12:07 | ANESTHESIA ---
Pre-Anesthesia VS, & Labs - Diagnosis hx of polyps - Procedure colonoscopy Vital Signs: Temp Pulse Resp BP Pulse Ox O2 Flow Rate 36.1 C L 78 20 136/82 H 98 0 08/24/22 09:39 08/24/22 09:39 08/24/22 09:39 08/24/22 09:39 08/24/22 09:39 08/24/22 09:39 Height: 6 ft 2 in Weight (kg): 104 kg Body Mass Index: 29.4 BMI Classification: Overweight - NPO >8 hours - Lab Results Current Lab Results: Laboratory Tests 08/24/22 09:51: POC Whole Bld Glucose 96 Home Medications and Allergies Simvastatin 40 mg PO QPM 08/24/15 Tamsulosin [Flomax] 0.4 mg PO 1730 08/24/15 metFORMIN [Glucophage] 500 mg PO BIDWM 08/24/15 Aspirin [Aspirin EC] 81 mg PO DAILY 11/24/17 Cholecalciferol (Vitamin D3) [Vitamin D3] 2,000 units PO DAILY 11/24/17 Losartan Potassium 25 mg PO DAILY 11/24/17 Ubidecarenone [Co Q-10] 10 mg PO DAILY 11/24/17 Vitamin B Complex 1 tab PO DAILY 11/24/17 hydroCHLOROthiazide [Hydrodiuril] 12.5 mg PO DAILY 07/13/21 Allergies/Adverse Reactions: Allergies Allergy/AdvReac Type Severity Reaction Status Date / Time No Known Drug Allergies Allergy Verified 08/24/22 09:50 Anes History & Medical History - Anesthetic History Anesthesia Complications: reports: No previous complications Family history of Anesthesia Complications: Denies Family history of Malignant Hyperthermia: Denies - Medical History Cardiovascular: reports: Hypertension, High cholesterol Pulmonary: reports: Sleep apnea Gastrointestinal: reports: Colon polyps Urinary: reports: Benign prostate hypertrophy Neuro: reports: None Musculoskeletal: reports: Chronic back pain Endocrine/Autoimmune: reports: Type 2 diabetes Blood Disorders: reports: None Skin: reports: None Smoking Status: Never smoker - Surgical History General: reports: Colonoscopy Eyes Ears Nose Throat (EENT): reports: Other Exam General: Alert, Oriented x3, Cooperative Dental: WNL Mouth Openin Fingerbreadth Neck Mobility: Normal Mallampati classification: II Thyromental Distance: 4-6 cm Respiratory: Lungs clear Cardiovascular: Regular rate Plan Anesthesia Type: General, Total IV Consent for Procedure(s) Verified and Reviewed: Yes Code Status: Attempt Resuscitation ASA classification: 2-Mild systemic disease Is this case an emergency?: No
[2022-08-24 12:42] VITALS: BP 118/75
--- NOTE | 2022-08-24 14:54 | ANESTHESIA POST OP EVALUATION ---
Anesthesia Post Eval - Post Anesthesia Eval Vitals: Last Vital Signs Temp 36.2 C L 08/24/22 12:41 Pulse 57 L 08/24/22 12:41 Resp 16 08/24/22 12:41 BP 118/75 08/24/22 12:41 Pulse Ox 100 08/24/22 12:41 O2 Flow Rate 0 08/24/22 09:39 CV Function Including HR & BP: Stable Pain Control: Satisfactory Nausea & Vomiting: Negative Mental Status: Baseline Respiratory Status: Airway Patent Hydration Status: Satisfactory Anesthesia Complications: None
== END 2022-08-24 09:31 | disposition home or self-care (01) ==
LOC: SDS 09:30
PROVIDERS: ATTEND Surgery
PROC: 0DBL8ZZ Excision of Transverse Colon, Via Natural or Artificial Opening Endoscopic (ICD-10-PCS; 2022-08-24)
PROC: 0DBH8ZZ Excision of Cecum, Via Natural or Artificial Opening Endoscopic (ICD-10-PCS; principal; 2022-08-24 10:45)
DX: Z12.11 Encounter for screening for malignant neoplasm of colon (principal); D12.3 Benign neoplasm of transverse colon; D12.0 Benign neoplasm of cecum; K57.30 Diverticulosis of large intestine without perforation or abscess without bleeding; K64.8 Other hemorrhoids; E11.9 Type 2 diabetes mellitus without complications; G47.30 Sleep apnea, unspecified; N40.0 Benign prostatic hyperplasia without lower urinary tract symptoms; Z80.0 Family history of malignant neoplasm of digestive organs
CPT/HCPCS: 45380; 45385; J7120

== ENCOUNTER 2022-10-28 10:46 | Outpatient (CLI) | payer BC ==
[2022-10-28 17:53] LABS: CALCIUM 9.3 mg/dL (8.5-10.3); CREATININE 1.3 mg/dL (0.6-1.2); POTASSIUM 4.1 mmol/L (3.5-5.0)
[2022-10-28 18:02] LABS: ESTIMATED AVERAGE GLUCOSE 126 mg/dL (70-100)
== END 2022-10-28 10:47 | disposition home or self-care (01) ==
LOC: LAB.N 10:46
PROVIDERS: ATTEND Internal Medicine
DX: I10 Essential (primary) hypertension (principal); E11.9 Type 2 diabetes mellitus without complications
CPT/HCPCS: 36415; 80048; 83036

== ENCOUNTER 2023-04-08 09:05 | Outpatient (CLI) | payer BC ==
[2023-04-08 19:11] LABS: ESTIMATED AVERAGE GLUCOSE 117 mg/dL (70-100); HEMOGLOBIN A1c% 5.7 % (4.27-6.07)
[2023-04-08 19:31] LABS: ALBUMIN 4.5 g/dL (3.2-5.5); ALKALINE PHOSPHATASE 72 IU/L (42-121); ALT ALANINE AMINOTRANSFERASE 15 IU/L (10-60); AST ASPARTATE AMINOTRANSFERASE 16 IU/L (10-42); BILIRUBIN,TOTAL 0.7 mg/dL (0.2-1.0); BUN - BLOOD UREA NITROGEN 17 mg/dL (6-20); CARBON DIOXIDE - CO2 33 mmol/L (21-32); CHLORIDE 101 mmol/L (101-111); CHOL/HDL RATIO 2.4 (<5.0); CHOLESTEROL 123 mg/dL; GFR - MDRD 74 (>89); GLUCOSE 115 mg/dL (74-104); HDL CHOLESTEROL 51 mg/dL; LDL CHOLESTEROL,CALCULATED 53 mg/dL; SODIUM 139 mmol/L (135-145); TOTAL PROTEIN 6.7 g/dL (6.4-8.9); TRIGLYCERIDES 97 mg/dL (48-352); VLDL CHOLESTEROL 19 mg/dL
[2023-04-08 19:35] LABS: BASOPHILS # (AUTO) 0.1 10^3/uL (0.0-0.1); BASOPHILS % (AUTO) 0.6 %; EOSINOPHILS # (AUTO) 0.2 10^3/uL (0.0-0.7); EOSINOPHILS % (AUTO) 2.6 %; HCT - HEMATOCRIT 42.9 % (42.0-52.0); HGB - HEMOGLOBIN 13.4 g/dL (14.0-18.0); LYMPHOCYTES # (AUTO) 1.5 10^3/uL (1.5-3.5); LYMPHOCYTES % (AUTO) 16.6 %; MEAN CORPUSCULAR HEMOGLOBIN 29.8 pg (27.0-31.0); MEAN CORPUSCULAR HGB CONC 31.2 g/dL (32.0-36.0); MEAN CORPUSCULAR VOLUME 95.3 fL (80.0-94.0); MEAN PLATELET VOLUME 11.2 fL (7.4-11.4); MONOCYTES # (AUTO) 0.8 10^3/uL (0.0-1.0); MONOCYTES % (AUTO) 8.9 %; NEUTROPHILS # (AUTO) 6.6 10^3/uL (1.5-6.6); NEUTROPHILS % (AUTO) 71.2 %; PLT - PLATELET COUNT 247 10^3/uL (130-450); RED CELL DISTRIBUTION WIDTH 13.4 % (12.0-15.0); WHITE BLOOD COUNT 9.3 x10^3/uL (4.8-10.8)
[2023-04-08 19:47] LABS: CREATININE,URINE 90.9 mg/dL
[2023-04-08 20:02] LABS: MICROALBUMIN,URINE < 0.7 mg/dL
== END 2023-04-08 09:06 | disposition home or self-care (01) ==
LOC: LAB.N 09:05
PROVIDERS: ATTEND Internal Medicine
DX: I10 Essential (primary) hypertension (principal); E78.5 Hyperlipidemia, unspecified; E11.9 Type 2 diabetes mellitus without complications; N40.1 Benign prostatic hyperplasia with lower urinary tract symptoms
CPT/HCPCS: 36415; 80053; 80061; 82043; 82570; 83036; 83721; 84153; 85025

== ENCOUNTER 2023-08-11 08:00 | Outpatient (CLI) | payer BC ==
[2023-08-11 12:01] LABS: ESTIMATED AVERAGE GLUCOSE 163 mg/dL (70-100); HEMOGLOBIN A1c% 7.3 % (4.27-6.07)
[2023-08-11 12:15] LABS: ALBUMIN 4.4 g/dL (3.2-5.5); ALBUMIN/GLOBULIN RATIO 1.7 (1.0-2.2); BILIRUBIN,TOTAL 0.6 mg/dL (0.2-1.0); CALCIUM 10.1 mg/dL (8.5-10.3); CREATININE 1.2 mg/dL (0.6-1.3)
== END 2023-08-11 23:59 | disposition home or self-care (01) ==
LOC: LAB.N 08:00
PROVIDERS: ATTEND Internal Medicine
DX: E11.9 Type 2 diabetes mellitus without complications (principal)
CPT/HCPCS: 36415; 80053; 83036